=== PATIENT | female | born 1950 | race Caucasian/White ===

== ENCOUNTER 2017-08-18 08:48 | Day surgery (SDC) | payer MEDICARE ==
[~2017-08-18] VITALS: Ht 157.5 cm; Wt 81.0 kg
[2017-08-18] VITALS (14 sets, daily range): BP systolic 113–146; BP diastolic 56–81; PULSE 57–80; TEMP 97.9–98.7
[2017-08-18] MEDS ORDERED: D3-5050000 IU PO (09:49)
[2017-08-18 10:01] LABS: HEMATOCRIT 43.5 % (37.0-47.0); HEMOGLOBIN 14.6 g/dl (12.5-16.0); MEAN CELL VOLUME 83 fl (80.0-100.0); MEAN CORPUSCULAR HEMOGLOBIN 28 pg (27.0-31.0); MEAN CORPUSCULAR HGB CONC 34 g/dl (33.0-37.0); MEAN PLATELET VOLUME 10.4 fl (7.4-10.4); PLATELET COUNT 184 K/mm3 (130-400); RED BLOOD COUNT 5.25 M/mm3 (4.10-5.30); WHITE BLOOD COUNT 7.1 K/mm3 (4.8-10.8)
[2017-08-18 10:04] LABS: INR 1.1 (0.8-3.0); PROTHROMBIN TIME 12.6 SECONDS (9.7-12.8)
[2017-08-18 11:02] LABS: CALCIUM 9.6 mg/dL (8.4-10.2); CREATININE, serum 0.71 mg/dL (0.52-1.25)
[2017-08-19 02:00] VITALS: BP 144/73; PULSE 60; TEMP 98
[2017-08-19 04:17] VITALS: BP 145/97; PULSE 62; TEMP 97.9
[2017-08-19 07:50] VITALS: BP 144/79; PULSE 63; TEMP 98
[2017-08-19 11:11] VITALS: BP 141/72; PULSE 61; TEMP 98.2
[2017-08-19] MEDS ORDERED: CEPHALEXIN500 M1 PO (15:41)
== END 2017-08-19 16:40 | disposition home or self-care (01) ==
LOC: SDCO 08:48 → MEDICAL 15:22 → SDCO 08-19 16:40
PROVIDERS: Internal Medicine Interventional Cardiology
DX: R00.1 Bradycardia, unspecified (principal)
CPT/HCPCS: OP; C1785; C1894; C1898; J0690; J2250; J3010; J7030